=== PATIENT | male | born 1955 | race Caucasian/White ===

== ENCOUNTER → 2018-05-24 | Outpatient (CLI) | payer OTHER ==
[~2018-05-24] MED LIST: ALLO300 PO; ASPI81CH PO; ATEN50 PO; CAPHYD PO; CHLO25B PO; CLAR125SU PO; COLC.6 PO; ESOM20 PO; METO5A PO; NEBI10 PO; PRED10 PO; RAMI5 PO; RANI150 PO; Ramipril10 MG PO; TERA5 PO
== END ==
LOC: LAB 10:52 → LAB SHORT 10:52
DX: N39.0 Urinary tract infection, site not specified (principal)
CPT/HCPCS: 87086

== ENCOUNTER 2019-10-09 08:57 | Day surgery (SDC) | payer OTHER ==
[~2019-10-09] VITALS: Ht 175.3 cm; Wt 120.9 kg
--- NOTE | 2019-10-09 09:43 | NUR ---
Ambulatory in Day Surgery. Surgical site prepped with 2% Chlorhexidine cloth wipe. History, Chart, Medications and Allergies reviewed before start of procedure.Lungs clear T/O to Auscultation. Patient confirms NPO status and agrees with scheduled surgery. Pre-Op teaching done. Pt verbalizes understanding. Patient States Post-Procedure ride home has been arranged.
[2019-10-09 09:55] LABS: Creatinine (POC) 1.4 mg/dL (0.8-1.3)
== END 2019-10-09 10:25 | disposition home or self-care (01) ==
LOC: CT 08:57 → ORD 08:57 → CT 10:00 → ORD 10:25
PROVIDERS: Internal Medicine Cardiovascular Disease
DX: I25.10 Atherosclerotic heart disease of native coronary artery without angina pectoris (principal); E78.5 Hyperlipidemia, unspecified; I12.9 Hypertensive chronic kidney disease with stage 1 through stage 4 chronic kidney disease, or unspecified chronic kidney disease; N18.9 Chronic kidney disease, unspecified; K44.9 Diaphragmatic hernia without obstruction or gangrene; Z79.899 Other long term (current) drug therapy
CPT/HCPCS: 75571; 82565

== ENCOUNTER 2020-10-13 05:45 | Day surgery (SDC) | payer OTHER ==
[~2020-10-13] VITALS: Ht 177.8 cm; Wt 126.0 kg
[~2020-10-13 05:45] MED LIST changes: +CLOP75 PO; +LOSA25 PO
[2020-10-13] MEDS ORDERED: Isosorbide Mono30 MG PO (09:27)
--- NOTE | 2020-10-13 11:04 | NUR ---
ATTEMPTED TO RELEASE 2mL AIR FROM TR BAND. PULSATING BLEEDING NOTED. REPLACED 3mL AIR BACK INTO TR BAND. WILL REATTEMPT IN 30MINS. PT DENIES ANY NEEDS AT THIS TIME. VSS. WILL CONTINUE TO MONITOR.
--- NOTE | 2020-10-13 11:34 | NUR ---
2Ml air released from tr band. no bleeding, oozing hematoma noted.
--- NOTE | 2020-10-13 11:53 | NUR ---
2 MORE CC OF AIR OUT OF TR BAND. NO BLEEDING OR HEMATOMA NOTED. PT AMBULATES TO AND FROM RESTROOM WITHOUT DIFF. NADN. VSS. CALL LIGHT WITHIN REACH.
--- NOTE | 2020-10-13 12:10 | NUR ---
2mL AIR RELEASED FROM TR BAND. NO BLEEDING, OOZING OR HEMATOMA NOTED. WILL RELEASE THE REMAINING IN ABOUT 10MINS IF NOT BLEEDING OCCURS. VVS.
--- NOTE | 2020-10-13 12:46 | NUR ---
PT UP TO USE RESTROOM. NO BLEEDING, OOZING OR HEMATOMA NOTED. PT TO GET DRESSED. VSS.
--- NOTE | 2020-10-13 13:09 | NUR ---
PT AMBULATES TO RESTROOM AND DRESSED SELF WITH NO COMPLICATIONS. TR BAND REMOVED, SITE CLEANED. NO BLEEDING, OOZING OR HEMATOMA NOTED. CLOTH DOT DRESSING APPLIED AND WHITE BOARD PLACED ON R ARM. IV DCD WITH CATH INTACT. PT DENIES ANY PAIN. PT STATES HIS UNDERSTANDING OF SITE CARE AND DC INSTRUCTIONS AND DENIES ANY QUESTIONS OR CONCERNS. PT TAKEN TO EXIT VIA WHEELCHAIR BY RN WHERE WAS WAITING.
== END 2020-10-13 13:15 | disposition home or self-care (01) ==
LOC: MHTC 05:45
DX: I25.118 Atherosclerotic heart disease of native coronary artery with other forms of angina pectoris (principal); R94.39 Abnormal result of other cardiovascular function study; I34.0 Nonrheumatic mitral (valve) insufficiency; I34.1 Nonrheumatic mitral (valve) prolapse; I10 Essential (primary) hypertension; C90.00 Multiple myeloma not having achieved remission; E66.9 Obesity, unspecified; E78.00 Pure hypercholesterolemia, unspecified; J98.4 Other disorders of lung; Z79.82 Long term (current) use of aspirin; Z79.02 Long term (current) use of antithrombotics/antiplatelets; Z68.39 Body mass index [BMI] 39.0-39.9, adult
CPT/HCPCS: 93458; 99152; 99153; C1769; C1894; J1644; J2250; J3010; J7030; J7050; Q9967

== ENCOUNTER 2022-03-25 08:30 | Emergency (ER) | payer OTHER ==
[~2022-03-25] VITALS: Ht 177.8 cm; Wt 117.9 kg
[~2022-03-25 08:30] MED LIST changes: +Isosorbide Mono30 MG PO
[2022-03-25 09:53] LABS: Source, Urine Foley catheter
[2022-03-25 10:03] LABS: Appearance, Urine Clear (Clear); Bilirubin, Urine Neg (Neg); Blood, Urine Neg (Neg); Color, Urine Yellow (P-Yellow); Glucose Qualitative, Urine Neg (Neg); Ketones, Urine Neg (Neg); Leukocyte Esterase, Urine Neg (Neg); Nitrite, Urine Neg (Neg); Protein, Urine 2+ (Neg); Specific Gravity, Urine 1.025 (1.003-1.022); Urobilinogen, Urine NORM (Normal)
[2022-03-25 10:18] LABS: Bacteria Rare /hpf; Hyaline Casts 0-2 /lpf (0-2); Red Blood Cells, Urine 0-2 /hpf (0-2); Squamous Epithelial Cells Rare /hpf (Few); White Blood Cells, Urine 0-2 /hpf (0-5)
== END 2022-03-25 10:41 | disposition home or self-care (01) ==
LOC: ER 08:30
PROVIDERS: Physician Assistant
DX: R33.9 Retention of urine, unspecified (principal); I10 Essential (primary) hypertension; Z79.899 Other long term (current) drug therapy; Z79.82 Long term (current) use of aspirin; Z96.641 Presence of right artificial hip joint
CPT/HCPCS: 51702; 81001

== ENCOUNTER 2022-03-28 07:01 | Emergency (ER) | payer OTHER ==
[~2022-03-28] VITALS: Ht 177.8 cm; Wt 117.9 kg
[2022-03-28] MEDS ORDERED: TIZA4 PO (08:05)
[2022-03-28 09:24] LABS: Source, Urine Foley catheter
[2022-03-28 09:42] LABS: Appearance, Urine Hazy (Clear); Bilirubin, Urine Neg (Neg); Blood, Urine 5+ (Neg); Color, Urine Yellow (P-Yellow); Glucose Qualitative, Urine Neg (Neg); Ketones, Urine Neg (Neg); Leukocyte Esterase, Urine 2+ (Neg); Nitrite, Urine Neg (Neg); Protein, Urine 3+ (Neg); Specific Gravity, Urine 1.025 (1.003-1.022); Urobilinogen, Urine NORM (Normal)
[2022-03-28 10:04] LABS: Bacteria Many /hpf; Red Blood Cells, Urine 50-100 /hpf (0-2); Squamous Epithelial Cells Rare /hpf (Few)
[2022-03-28 10:05] LABS: Hyaline Casts 0-2 /lpf (0-2); Mucus Heavy (0-Heavy)
[2022-03-28] MEDS ORDERED: Cipro500 MG PO (10:28)
[2022-03-28] MEDS ORDERED: Pyridium200 MG PO (10:38)
== END 2022-03-28 11:21 | disposition home or self-care (01) ==
LOC: ER 07:01
PROVIDERS: Physician Assistant
DX: T83.511A Infection and inflammatory reaction due to indwelling urethral catheter, initial encounter (principal); N39.0 Urinary tract infection, site not specified; I10 Essential (primary) hypertension; N40.1 Benign prostatic hyperplasia with lower urinary tract symptoms; R33.8 Other retention of urine; Z79.899 Other long term (current) drug therapy; Z79.82 Long term (current) use of aspirin
CPT/HCPCS: 81001; A9270

== ENCOUNTER 2022-04-24 22:30 | Emergency (ER) | payer OTHER ==
[~2022-04-24] VITALS: Ht 177.8 cm; Wt 108.9 kg
[~2022-04-24 22:30] MED LIST changes: +Cipro500 MG PO; +Pyridium200 MG PO; +TIZA4 PO
[2022-04-24 23:15] LABS: BASOPHILS ABSOLUTE AUTO 0.04 K/mm3 (0.00-0.23); BASOPHILS PERCENT AUTO 1 % (0-2); EOSINOPHILS ABSOLUTE AUTO 0.56 K/mm3 (0.00-0.68); EOSINOPHILS PERCENT AUTO 8 % (0-6); Hematocrit 41.8 % (37.0-53.0); IMMATURE GRAN ABSOLUTE AUTO 0.02 K/mm3 (0.00-0.10); IMMATURE GRAN PERCENT AUTO 0 % (0-1); LYMPHOCYTES ABSOLUTE AUTO 1.93 K/mm3 (0.84-5.20); LYMPHOCYTES PERCENT AUTO 26 % (21-46); MONOCYTES PERCENT AUTO 11 % (4-13); Mean Corpuscular HGB 30.8 pg (26.0-34.0); Mean Corpuscular HGB Conc 33.5 g/dL (31.5-36.5); Mean Corpuscular Volume 92 fL (80-100); Mean Platelet Volume 9.7 fL (9.1-12.4); NEUTROPHILS ABSOLUTE AUTO 4.03 K/mm3 (1.96-9.15); NEUTROPHILS PERCENT AUTO 55 % (41-73); Platelet Count 196 K/mm3 (150-400); RDW Coefficient Variation 14.5 % (11.7-14.2); RDW Standard Deviation 48.7 fL (35.1-46.3); Red Blood Cell Count 4.54 M/mm3 (4.30-5.90); White Blood Cell Count 7.38 K/mm3 (4.00-11.30)
[2022-04-24 23:28] LABS: Magnesium, Blood 1.9 mg/dL (1.6-2.4)
[2022-04-24 23:54] LABS: Albumin/Globulin Ratio 0.8 (0.8-1.8); Bilirubin, Total 0.4 mg/dL (0.1-1.0); Bun/Creatinine Ratio 25.2 (12.0-20.0); Creatinine, Blood 1.47 mg/dL (0.60-1.20); Thyroid Stimulating Hormone 2.66 uIU/mL (0.360-4.800)
== END 2022-04-25 03:00 | disposition home or self-care (01) ==
LOC: ER 22:30
PROVIDERS: Student in an Organized Health Care Education/Training Program
DX: M54.6 Pain in thoracic spine (principal); R20.0 Anesthesia of skin; I10 Essential (primary) hypertension; Z79.82 Long term (current) use of aspirin; Z79.899 Other long term (current) drug therapy
CPT/HCPCS: 71046; 80053; 83735; 84443; 84484; 85025; A9270; J3010

== ENCOUNTER 2022-04-29 21:23 | Emergency (ER) | payer OTHER ==
[~2022-04-29] VITALS: Ht 180.3 cm; Wt 108.9 kg
[2022-04-30 00:01] LABS: Source, Urine Foley catheter
[2022-04-30 00:14] LABS: Bilirubin, Urine Neg (Neg); Blood, Urine 1+ (Neg); Glucose Qualitative, Urine Neg (Neg); Ketones, Urine Neg (Neg); Leukocyte Esterase, Urine Neg (Neg); Nitrite, Urine Neg (Neg); Protein, Urine 2+ (Neg); Urobilinogen, Urine NORM (Normal)
[2022-04-30 00:21] LABS: BASOPHILS ABSOLUTE AUTO 0.06 K/mm3 (0.00-0.23); BASOPHILS PERCENT AUTO 1 % (0-2); EOSINOPHILS ABSOLUTE AUTO 0.45 K/mm3 (0.00-0.68); EOSINOPHILS PERCENT AUTO 6 % (0-6); Hematocrit 40.7 % (37.0-53.0); Hemoglobin 13.9 g/dL (13.5-17.5); IMMATURE GRAN ABSOLUTE AUTO 0.04 K/mm3 (0.00-0.10); IMMATURE GRAN PERCENT AUTO 1 % (0-1); LYMPHOCYTES ABSOLUTE AUTO 1.87 K/mm3 (0.84-5.20); LYMPHOCYTES PERCENT AUTO 27 % (21-46); MONOCYTES ABSOLUTE AUTO 0.78 K/mm3 (0.16-1.47); MONOCYTES PERCENT AUTO 11 % (4-13); Mean Corpuscular HGB Conc 34.2 g/dL (31.5-36.5); Mean Corpuscular Volume 91 fL (80-100); Mean Platelet Volume 10.5 fL (9.1-12.4); NEUTROPHILS ABSOLUTE AUTO 3.83 K/mm3 (1.96-9.15); NEUTROPHILS PERCENT AUTO 54 % (41-73); Platelet Count 181 K/mm3 (150-400); RDW Coefficient Variation 14.3 % (11.7-14.2); RDW Standard Deviation 47.4 fL (35.1-46.3); Red Blood Cell Count 4.49 M/mm3 (4.30-5.90); White Blood Cell Count 7.03 K/mm3 (4.00-11.30)
[2022-04-30 00:22] LABS: Bun/Creatinine Ratio 28.3 (12.0-20.0); Calcium, Blood 8.7 mg/dL (8.5-10.1); Creatinine, Blood 1.06 mg/dL (0.60-1.20); Potassium, Blood 3.8 mmol/L (3.5-5.5)
[2022-04-30 00:26] LABS: Appearance, Urine Clear (Clear); Color, Urine Yellow (P-Yellow)
[2022-04-30 00:27] LABS: Bacteria Rare /hpf; Red Blood Cells, Urine 0-2 /hpf (0-2); Squamous Epithelial Cells Rare /hpf (Few); White Blood Cells, Urine 0-2 /hpf (0-5)
[2022-04-30 00:41] LABS: Prothrombin Time Results 10.5 Sec (9.7-11.5)
[2022-04-30 01:15] LABS: SARS-Cov-2 (COVID-19) PCR, MMC POSITIVE (NEGATIVE)
== END 2022-04-30 02:04 | disposition short-term general hospital (02) ==
LOC: ER 21:23
PROVIDERS: Student in an Organized Health Care Education/Training Program
DX: M54.9 Dorsalgia, unspecified (principal); R33.9 Retention of urine, unspecified; G95.9 Disease of spinal cord, unspecified; I10 Essential (primary) hypertension; U07.1 COVID-19; Z79.82 Long term (current) use of aspirin; Z79.899 Other long term (current) drug therapy
CPT/HCPCS: 51702; 51798; 72128; 72131; 80048; 81001; 85025; 85610; 85730; J1170; U0004

== ENCOUNTER → 2022-07-12 | Outpatient (CLI) | payer OTHER | LOC: LAB SHORT 17:13 → LAB 17:13 | DX: R30.0 Dysuria (principal) | CPT/HCPCS: 87086 ==

== ENCOUNTER → 2022-08-20 | Outpatient (CLI) | payer OTHER ==
[2022-08-20 12:43] LABS: BASOPHILS ABSOLUTE AUTO 0.07 K/mm3 (0.00-0.23); BASOPHILS PERCENT AUTO 2 % (0-2); EOSINOPHILS ABSOLUTE AUTO 0.46 K/mm3 (0.00-0.68); EOSINOPHILS PERCENT AUTO 10 % (0-6); Hematocrit 33.9 % (37.0-53.0); Hemoglobin 10.9 g/dL (13.5-17.5); IMMATURE GRAN ABSOLUTE AUTO 0.02 K/mm3 (0.00-0.10); IMMATURE GRAN PERCENT AUTO 0 % (0-1); LYMPHOCYTES ABSOLUTE AUTO 1.16 K/mm3 (0.84-5.20); LYMPHOCYTES PERCENT AUTO 26 % (21-46); MONOCYTES ABSOLUTE AUTO 0.44 K/mm3 (0.16-1.47); MONOCYTES PERCENT AUTO 10 % (4-13); Mean Corpuscular HGB 27.9 pg (26.0-34.0); Mean Corpuscular HGB Conc 32.2 g/dL (31.5-36.5); Mean Corpuscular Volume 87 fL (80-100); NEUTROPHILS ABSOLUTE AUTO 2.34 K/mm3 (1.96-9.15); NEUTROPHILS PERCENT AUTO 52 % (41-73); Platelet Count 155 K/mm3 (150-400); RDW Coefficient Variation 16.2 % (11.7-14.2); RDW Standard Deviation 51.8 fL (35.1-46.3); White Blood Cell Count 4.49 K/mm3 (4.00-11.30)
[2022-08-20 12:53] LABS: Albumin, Blood 3.3 g/dL (3.4-5.0); Albumin/Globulin Ratio 0.9 (0.8-1.8); Bilirubin, Total 0.3 mg/dL (0.1-1.0); Bun/Creatinine Ratio 19.2 (12.0-20.0); Calcium, Blood 8.9 mg/dL (8.5-10.1); Creatinine, Blood 0.99 mg/dL (0.60-1.20); Globulin, Blood 3.7 g/dL (2.2-4.0); Potassium, Blood 3.8 mmol/L (3.5-5.5)
== END | disposition home or self-care (01) ==
LOC: LAB 12:38 → LAB SHORT 12:38
PROVIDERS: Physician Assistant
DX: R06.00 Dyspnea, unspecified (principal)
CPT/HCPCS: 80053; 83880; 84484; 85025

== ENCOUNTER 2023-09-04 11:41 | Observation (INO) | payer OTHER ==
[~2023-09-04] VITALS: Ht 177.8 cm; Wt 104.8 kg
[2023-09-04 12:16] LABS: BASOPHILS ABSOLUTE AUTO 0.08 K/mm3 (0.00-0.23); BASOPHILS PERCENT AUTO 2 % (0-2); EOSINOPHILS ABSOLUTE AUTO 0.33 K/mm3 (0.00-0.68); EOSINOPHILS PERCENT AUTO 7 % (0-6); Hematocrit 39.3 % (37.0-53.0); Hemoglobin 13.1 g/dL (13.5-17.5); IMMATURE GRAN ABSOLUTE AUTO 0.08 K/mm3 (0.00-0.10); IMMATURE GRAN PERCENT AUTO 2 % (0-1); LYMPHOCYTES ABSOLUTE AUTO 1.26 K/mm3 (0.84-5.20); LYMPHOCYTES PERCENT AUTO 28 % (21-46); MONOCYTES ABSOLUTE AUTO 0.55 K/mm3 (0.16-1.47); MONOCYTES PERCENT AUTO 12 % (4-13); Mean Corpuscular HGB Conc 33.3 g/dL (31.5-36.5); Mean Corpuscular Volume 90 fL (80-100); NEUTROPHILS ABSOLUTE AUTO 2.18 K/mm3 (1.96-9.15); NEUTROPHILS PERCENT AUTO 49 % (41-73); Platelet Count 88 K/mm3 (150-400); RDW Standard Deviation 55.8 fL (35.1-46.3); Red Blood Cell Count 4.37 M/mm3 (4.30-5.90); White Blood Cell Count 4.48 K/mm3 (4.00-11.30)
[2023-09-04] MEDS ORDERED: AMLODIPINE BESY10 MG PO (12:28)
[2023-09-04] MEDS ORDERED: CARVEDILOL12.5 MG PO (12:28)
[2023-09-04] MEDS ORDERED: Revlimid10 MG PO (12:29)
[2023-09-04 12:30] LABS: Albumin, Blood 3.1 g/dL (3.4-5.0); Albumin/Globulin Ratio 0.8 (0.8-1.8); Bilirubin, Total 1.1 mg/dL (0.1-1.0); Bun/Creatinine Ratio 14.5 (12.0-20.0); Creatinine, Blood 1.17 mg/dL (0.60-1.20); Globulin, Blood 3.7 g/dL (2.2-4.0); Potassium, Blood 3.8 mmol/L (3.5-5.5); Total Protein, Blood 6.8 g/dL (6.4-8.2)
[2023-09-04 18:33] VITALS: BP 143/79
[2023-09-04] MEDS ORDERED: GABA100 PO (18:39)
--- NOTE | 2023-09-04 23:10 | NUR ---
ADMIT NOTE 68 YR OLD MALE ADMITTED TO FLOOR FROM THE ED ON PREVIOUS SHIFT, NEAR SHIFT COMMENCE. DX LOC. ALERT AND ORIENTED X 4. REPORTED THAT HE WAS IN [place] FELT FAINT, THOUGHT HE FELL, BUT WHEN HE WOKE UP A FELLOW PARISIONER TOLD HIM HE WAS "PULLED" OUT OF THE [place] AND THEY STARTED "CHEST COMPRESSIONS" ON HIM THEY TOUGHT HE "". NOTE SOME BRUISING OF CHEST, AND AN ABRASION OF HIS FOREHEAD AREA. C/O CHEST PAIN DUE TO SAID COMPRESSIONS AND RECEIVED MED - SEE MAR FOR DETAILS. ORIENTED TO USE OF CALL LIGHT. CALL LIGHT IN REACH. RAILS UP X 2 FOR SAFETY. WILL CONTINUE TO MONITOR/ASSESS.
[2023-09-05 02:15] LABS: Hematocrit 35.7 % (37.0-53.0); Hemoglobin 11.6 g/dL (13.5-17.5); Mean Corpuscular HGB 29.4 pg (26.0-34.0); Mean Corpuscular HGB Conc 32.5 g/dL (31.5-36.5); Mean Corpuscular Volume 90 fL (80-100); Mean Platelet Volume 9.8 fL (9.1-12.4); Platelet Count 98 K/mm3 (150-400); RDW Standard Deviation 56.3 fL (35.1-46.3); Red Blood Cell Count 3.95 M/mm3 (4.30-5.90); White Blood Cell Count 3.24 K/mm3 (4.00-11.30)
[2023-09-05 02:39] LABS: Alanine Aminotransfer (ALT/SGP 26 U/L (12-78); Albumin, Blood 2.9 g/dL (3.4-5.0); Albumin/Globulin Ratio 0.8 (0.8-1.8); Alk Phos 65 U/L (50-136); Anion Gap 6 mmol/L (6-16); Aspartate Aminotrans (AST/SGOT 18 U/L (12-37); Bilirubin, Total 0.6 mg/dL (0.1-1.0); Blood Urea Nitrogen 21 mg/dL (8-24); Bun/Creatinine Ratio 20.6 (12.0-20.0); CHOL/HDL RATIO 2.6; CO2, Blood 24 mmol/L (21-32); Calcium, Blood 8.5 mg/dL (8.5-10.1); Chloride, Blood 109 mmol/L (98-108); Cholesterol 120 mg/dL (50-200); Creatinine, Blood 1.02 mg/dL (0.60-1.20); Globulin, Blood 3.8 g/dL (2.2-4.0); Glomerular Filtration Rate 79 (60-); Glucose, Blood 167 mg/dL (70-99); HDL Cholesterol 47 mg/dL (>39); LDL/HDL RATIO 1.2; Low Density Lipoprotein Chol 58 mg/dL (0-110); Magnesium, Blood 1.9 mg/dL (1.6-2.4); Phosphorus, Blood 2.3 mg/dL (2.5-4.9); Potassium, Blood 3.6 mmol/L (3.5-5.5); Sodium, Blood 139 mmol/L (136-145); Thyroid Stimulating Hormone 0.599 uIU/mL (0.360-4.800); Total Protein, Blood 6.7 g/dL (6.4-8.2); Triglycerides 76 mg/dL (30-160); Very Low Density Lipoprot Chol 15 mg/dL (6-32)
[2023-09-05 02:42] LABS: BAND PERCENT MAN 11 % (0-8); BASOPHILS ABSOLUTE MAN 0.06 K/mm3 (0.00-0.23); BASOPHILS PERCENT MAN 2 % (0-2); EOSINOPHILS ABSOLUTE MAN 0.09 K/mm3 (0.00-0.68); EOSINOPHILS PERCENT MAN 3 % (0-6); LYMPHOCYTES ABSOLUTE MAN 0.68 K/mm3 (0.84-5.20); LYMPHOCYTES PERCENT MAN 21 % (21-46); MONOCYTES ABSOLUTE MAN 0.45 K/mm3 (0.16-1.47); MONOCYTES PERCENT MAN 14 % (4-13); NEUTROPHILS ABSOLUTE MAN 1.94 K/mm3 (1.96-9.15); SEG NEUTROPHILS PERCENT MAN 49 % (41-73); TOTAL CELLS COUNTED 100
--- NOTE | 2023-09-05 02:55 | NUR ---
ETHNIC STUDIES PROFESSOR SUMMARY VSS. WAS ADMITTED YESTERDAY FOR LOC IN [facility] AND PER PT REPORT HAD RECEIVED CHEST COMPRESSIONS IN [facility] BEFORE BEING TRANSFERRED TO THE HOSPITAL. VOICED PAIN CONTINUED FROM SAID COMPRESSIONS. RECEIVED PAIN MEDS - SEE NOV FOR DETAILS. PLACED ON MED TELE, SINUS RHYTHM IN THE 60'S. HAS BEEN RESTING QUIETLY WITH FEW INTERRUPTIONS SINCE LAST PAIN ELEMENTARY READING SPECIALIST. CALL LIGHT IN REACH. RAILS UP X 2. NO C/O VERTIGO OR NOTED LOSS OF CONSCIOUSNESS THIS SHIFT. WILL CONTINUE TO MONITOR
[2023-09-05 03:33] VITALS: BP 123/78
[2023-09-05 07:07] VITALS: BP 133/71
[2023-09-05 10:10] VITALS: BP 141/65
[2023-09-05 10:11] VITALS: BP 134/79; BP 150/74
[2023-09-05 15:08] VITALS: BP 111/65
--- NOTE | 2023-09-05 16:40 | NUR ---
SHIFT SUMMARY A&OX4, INDEPENDENT. PATIENT HAS BEEN AMBULATING WITH FWW INDEPENDENTLY IN ROOM. DENIES HEADACHE, CP/PRESSURE, DIZZINESS, OR SOB. DENIES PAIN. TROPONIN HAS INCREASED FROM 42 TO 59 TO 91. DISCHARGE ORDERS HAVE BEEN PUT IN CONTINGENT ON THE TROPONIN TRENDING DOWN. LOW WILL ORDER ANOTHER ECHO IF TROPONIN DRAWN AT 1900 IS HIGHER. PATIENT'S IS AT BEDSIDE CURRENTLY.
[2023-09-05 19:44] VITALS: BP 131/66
--- NOTE | 2023-09-05 21:24 | NUR ---
PT STATES HIS HAS TURNED OFF HER PHONE FOR THE NIGHT AND IS ASLEEP. PT STATES HE WILL PLAN TO STAY THE NIGHT AND LEAVE IN THE MORNING. STATES HIS IS AN EARLY RISER AND WOULD BE ABLE TO PICK HIM UP BETWEEN [phone].
[2023-09-06 03:54] VITALS: BP 127/67
--- NOTE | 2023-09-06 04:20 | NUR ---
SHIFT SUMMARY ADMITTED FOR LOSS OF CONSCIOUSNESS. FULL CODE. WITNESSES TO HIS FALL PERFORMED TWO ROUNDS OF CPR. TELEMETRY: NSR @ 69 BPM, NO EVENTS REPORTED. ON CARDIAC DIET. HIS CHEST/ARMS STILL HURT FROM COMPRESSIONS/EVENTS THAT LED TO HIS ADMIT. PAIN RX GIVEN WITH GOOD EFFECT. HE IS ON PLAVIX. RUGBURN WOUNDS VISIBLE ON HEAD AND NOSE FROM WHEN HE WAS DRAGGED. HE IS INDEPENDENT W/FWW. ON RA. TROPONINS ARE DOWNTRENDING. PLAN IS TO DC HOME WITH FAMILY TODAY.
[2023-09-06 07:23] VITALS: BP 128/81
[2023-09-06] MEDS ORDERED: HYDR1TAB94 PO (08:47)
--- NOTE | 2023-09-06 09:19 | NUR ---
DISCHARGE PT DISCHARGED AFTER AM MEDS. DR. KELSEY NOTIFED OF NEED FOR PAIN MANAGEMENT AT HOME. HARD SCRIPT WRITTEN AND GIVEN TO PATIENT. MEDICATED WITH NORCO PRIOR TO DEPARTURE. PT DENIES FURTHER NEED FOR INSTRUCTION AT THIS TIME. WHEELED OUT BY RN AND DRIVEN HOME BY .
== END 2023-09-06 09:08 | disposition home or self-care (01) ==
LOC: ER 11:41 → MEDS 11:42
PROVIDERS: Emergency Medicine; ADMIT Family Medicine
DX: R55 Syncope and collapse (principal); M10.9 Gout, unspecified; I10 Essential (primary) hypertension; K21.9 Gastro-esophageal reflux disease without esophagitis; I25.10 Atherosclerotic heart disease of native coronary artery without angina pectoris; Z79.899 Other long term (current) drug therapy
CPT/HCPCS: 36415; 70450; 71045; 80053; 80061; 83735; 84100; 84443; 84484; 85025; 93005; 93010; 96372; 99285-25; A9270; C8929; G0378; J1650; Q9957

== ENCOUNTER 2024-12-20 16:56 | Inpatient (IN) | payer OTHER ==
[~2024-12-20] VITALS: Ht 177.8 cm; Wt 117.9 kg
[~2024-12-20 16:56] MED LIST changes: +AMLODIPINE BESY10 MG PO; +CARVEDILOL12.5 MG PO; +GABA100 PO; +HYDR1TAB94 PO; +Revlimid10 MG PO
[2024-12-20] MEDS ORDERED: Ketorolac Tromethamine 15mg Vial IV ONE (17:15)
[2024-12-20] MEDS ORDERED: Ondansetron HCl 2 MG / ML 2ML Vial IV PRN ×2 (17:15→21:35)
[2024-12-20 17:41] LABS: BASOPHILS ABSOLUTE AUTO 0.03 K/mm3 (0.00-0.23); BASOPHILS PERCENT AUTO 1 % (0-2); EOSINOPHILS ABSOLUTE AUTO 0.21 K/mm3 (0.00-0.68); EOSINOPHILS PERCENT AUTO 4 % (0-6); Hematocrit 41.5 % (37.0-53.0); IMMATURE GRAN ABSOLUTE AUTO 0.05 K/mm3 (0.00-0.10); IMMATURE GRAN PERCENT AUTO 1 % (0-1); LYMPHOCYTES ABSOLUTE AUTO 1.05 K/mm3 (0.84-5.20); LYMPHOCYTES PERCENT AUTO 18 % (21-46); MONOCYTES PERCENT AUTO 12 % (4-13); Mean Corpuscular HGB 31.9 pg (26.0-34.0); Mean Corpuscular HGB Conc 33.7 g/dL (31.5-36.5); Mean Corpuscular Volume 95 fL (80-100); NEUTROPHILS ABSOLUTE AUTO 3.72 K/mm3 (1.96-9.15); NEUTROPHILS PERCENT AUTO 65 % (41-73); Platelet Count 153 K/mm3 (150-400); RDW Coefficient Variation 13.8 % (11.7-14.2); Red Blood Cell Count 4.39 M/mm3 (4.30-5.90); White Blood Cell Count 5.76 K/mm3 (4.00-11.30)
[2024-12-20 18:10] LABS: Albumin, Blood 3.9 g/dL (3.4-5.0); Albumin/Globulin Ratio 1.1 (0.8-1.8); Bilirubin, Total 0.4 mg/dL (0.1-1.0); Bun/Creatinine Ratio 18.2 (12.0-20.0); Calcium, Blood 8.9 mg/dL (8.5-10.1); Creatinine, Blood 1.32 mg/dL (0.60-1.20); Globulin, Blood 3.7 g/dL (2.2-4.0); Potassium, Blood 4.4 mmol/L (3.5-5.5); Total Protein, Blood 7.6 g/dL (6.4-8.2)
[2024-12-20 18:44] LABS: Source, Urine Clean Catch
[2024-12-20 18:48] LABS: Appearance, Urine Hazy (Clear); Bilirubin, Urine Neg (Neg); Blood, Urine 5+ (Neg); Color, Urine Yellow (P-Yellow); Glucose Qualitative, Urine 2+ (Neg); Ketones, Urine Neg (Neg); Leukocyte Esterase, Urine 2+ (Neg); Nitrite, Urine Pos (Neg); Protein, Urine 3+ (Neg); Specific Gravity, Urine 1.025 (1.003-1.022); Urobilinogen, Urine NORM (Normal)
[2024-12-20 19:07] LABS: Bacteria Many /hpf; Squamous Epithelial Cells Rare /hpf (Few); White Blood Cells, Urine 25-50 /hpf (0-5)
[2024-12-20] MEDS ORDERED: CefTRIAXone Sodium 1,000 MG in NS 100 ML IV ONE (19:35)
[2024-12-20] MEDS ORDERED: ACYC400 PO (20:59)
[2024-12-20] MEDS ORDERED: NS 1,000 ML IV SCH (21:35)
[2024-12-20] MEDS ORDERED: FentaNYL Citrate 50 MCG/ML 2 ML Injection IV PRN (21:35)
[2024-12-20] MEDS ORDERED: Tamsulosin HCl 0.4 MG Cap PO SCH (22:00)
[2024-12-20 22:56] VITALS: BP 175/86
[2024-12-21 03:29] VITALS: BP 143/66
[2024-12-21 04:58] LABS: BASOPHILS ABSOLUTE AUTO 0.02 K/mm3 (0.00-0.23); BASOPHILS PERCENT AUTO 0 % (0-2); EOSINOPHILS ABSOLUTE AUTO 0.13 K/mm3 (0.00-0.68); EOSINOPHILS PERCENT AUTO 2 % (0-6); Hematocrit 36.3 % (37.0-53.0); IMMATURE GRAN ABSOLUTE AUTO 0.01 K/mm3 (0.00-0.10); IMMATURE GRAN PERCENT AUTO 0 % (0-1); LYMPHOCYTES ABSOLUTE AUTO 1.25 K/mm3 (0.84-5.20); LYMPHOCYTES PERCENT AUTO 21 % (21-46); MONOCYTES ABSOLUTE AUTO 0.82 K/mm3 (0.16-1.47); MONOCYTES PERCENT AUTO 14 % (4-13); Mean Corpuscular HGB 31.4 pg (26.0-34.0); Mean Corpuscular HGB Conc 33.1 g/dL (31.5-36.5); Mean Corpuscular Volume 95 fL (80-100); Mean Platelet Volume 9.2 fL (9.1-12.4); NEUTROPHILS ABSOLUTE AUTO 3.76 K/mm3 (1.96-9.15); NEUTROPHILS PERCENT AUTO 63 % (41-73); Platelet Count 121 K/mm3 (150-400); RDW Coefficient Variation 13.9 % (11.7-14.2); RDW Standard Deviation 48.4 fL (35.1-46.3); Red Blood Cell Count 3.82 M/mm3 (4.30-5.90); White Blood Cell Count 5.99 K/mm3 (4.00-11.30)
--- NOTE | 2024-12-21 05:20 | NUR ---
NEW ADMIT/HI TEACHER SUMMARY PT A/OX4. ARRIVED TO ROOM AT 2255. ABLE TO MAKE NEEDS KNOWN. INDEPENDENT TRANSFER TO BED AND IN ROOM. ORIENTED PT TO ROOM AND CALL LIGHT. EDUCATED PT ON NETWORK LEAD AND IGNITION SOURCES. PT PROVIDED LIST OF HOME MEDICATIONS--MED REC COMPLETE. PT IS FULL CODE. ADMIT FOR HYDRONEPHROSIS. PT AWAITING BED WITH [facility]--WILL BE COBRA TRANSFER. PT HAS LEFT 10MM OBSTRUCTING STONE. UPON ARRIVAL TO ROOM PT DENIED PAIN OR NAUSEA. PT STATED SYMPTOMS RELIEVED WITH MEDS GIVEN IN THE ED. STARTED NS AT 75MLS HR PER MAR. PT IS URINATING SMALL AMOUNTS AT A TIME. PT HAS HX OF URINARY RETENTION BUT STATES HE FEELS HE MOSTLY ABLE TO EMPTY BLADDER WITH URINATION. CALL LIGHT ACCESSIBLE. CARE WILL CONTINUE UNTIL REPORT GIVEN TO ONCOMING NURSE.
[2024-12-21 05:24] LABS: Albumin, Blood 3.1 g/dL (3.4-5.0); Albumin/Globulin Ratio 0.9 (0.8-1.8); Bilirubin, Total 0.3 mg/dL (0.1-1.0); Calcium, Blood 8.6 mg/dL (8.5-10.1); Creatinine, Blood 1.26 mg/dL (0.60-1.20); Globulin, Blood 3.4 g/dL (2.2-4.0); Magnesium, Blood 1.9 mg/dL (1.6-2.4); Potassium, Blood 3.9 mmol/L (3.5-5.5); Total Protein, Blood 6.5 g/dL (6.4-8.2)
[2024-12-21 07:24] VITALS: BP 137/74
[2024-12-21] MEDS ORDERED: Carvedilol 6.25 MG Tab PO SCH (08:00)
[2024-12-21] MEDS ORDERED: Clopidogrel Bisulfate 75 MG Tab PO SCH (09:00)
[2024-12-21] MEDS ORDERED: Heparin Sodium,Porcine 5,000 UNIT/0.5 ML SDV SC SCH (09:00)
[2024-12-21] MEDS ORDERED: Acyclovir 400 MG Tab PO SCH (09:00)
[2024-12-21] MEDS ORDERED: Lactobacil 2-S.Thermo-Bifido 1 1 Cap PO SCH (09:00)
[2024-12-21] MEDS ORDERED: AmLODIPine Besylate 5 MG Tab PO SCH (09:00)
--- NOTE | 2024-12-21 11:13 | NUR ---
REPORT CALLED TO MONSERRAT RECIEVING NURSE AT [facility] IN [place] IN PREPERATION FOR TRANSFER TODAY.
[2024-12-21 11:29] VITALS: BP 137/74
[2024-12-21] MEDS ORDERED: OxyCODONE HCL 5 MG TAB PO ONE (12:15)
--- NOTE | 2024-12-21 12:26 | NUR ---
TRANSFER. MEDICAL TRANSPORT HERE TO TRANSPORT PT TO [facility] IN [place]. PT OX4, UP INDEPENDENTLY WITH SOME C/O NUMBNESS CHRONICALLY TO BLE, AT BEDSIDE. GIVEN OXY 5MG PRIOR TO TRANSFER. PIV LEFT IN PLACE L AC. NO NEW QUESTIONS OR CONCERNS PRIOR TO TRANSPORT,
[2024-12-21] MEDS ORDERED: CefTRIAXone Sodium 1,000 MG in NS 100 ML IV SCH (21:00)
== END 2024-12-21 12:30 | disposition short-term general hospital (02) | DRG 690 ==
LOC: ER 16:56 → ERHOLD 21:42 → MEDS 21:42
PROVIDERS: Emergency Medicine; Nurse Practitioner Acute Care; ADMIT Internal Medicine
DX: N13.6 Pyonephrosis (principal); I10 Essential (primary) hypertension; I25.10 Atherosclerotic heart disease of native coronary artery without angina pectoris; N40.0 Benign prostatic hyperplasia without lower urinary tract symptoms; M10.9 Gout, unspecified; Z96.641 Presence of right artificial hip joint; Z85.79 Personal history of other malignant neoplasms of lymphoid, hematopoietic and related tissues; Z79.02 Long term (current) use of antithrombotics/antiplatelets; Z79.82 Long term (current) use of aspirin
CPT/HCPCS: 36415; 74177; 80053; 81001; 83690; 83735; 85025; 87086; 96365-59; 96375; 99285-25; A9270; J0696; J1644; J1885; J2405; J3010; J7030; Q9967